=== PATIENT | male | born 1955 | race Caucasian/White ===

== ENCOUNTER 2020-01-16 15:21 | Emergency (ER) | payer BC, OTHER ==
[~2020-01-16] VITALS: Ht 188 cm; Wt 99.8 kg
[2020-01-16 15:34] VITALS: Ht 188 cm; Wt 99.8 kg
[2020-01-16 19:01] VITALS: BP 110/71
== END 2020-01-16 18:50 | disposition home or self-care (01) ==
LOC: ED 15:21
DX: T78.2XXA Anaphylactic shock, unspecified, initial encounter (principal); I10 Essential (primary) hypertension; J44.9 Chronic obstructive pulmonary disease, unspecified
CPT/HCPCS: J7512; J7613